=== PATIENT | male | born 1955 | race Caucasian/White ===

== ENCOUNTER 2021-03-30 18:04 | Emergency (ER) | payer MEDICARE ==
[~2021-03-30] VITALS: Ht 177.8 cm; Wt 91.8 kg
[2021-03-30 18:06] VITALS: BP 128/91
[2021-03-30] MEDS ORDERED: ketorolac trometh. 30mg/ml inj. IM ONE (19:35)
[2021-03-30] MEDS ORDERED: ketorolac tromethamine 15mg/ml inj. IM ONE (19:35)
== END 2021-03-30 19:44 | disposition home or self-care (01) ==
LOC: ER 18:05
DX: S16.1XXA Strain of muscle, fascia and tendon at neck level, initial encounter (principal); Z88.8 Allergy status to other drugs, medicaments and biological substances; X50.0XXA Overexertion from strenuous movement or load, initial encounter; Y93.89 Activity, other specified; Y92.89 Other specified places as the place of occurrence of the external cause; Y99.8 Other external cause status
CPT/HCPCS: 72125; 96372; 99284; J1885